=== PATIENT | male | born 1945 | race Caucasian/White ===

== ENCOUNTER 2018-07-01 12:55 | Emergency (ER) | payer OTHER ==
[2018-07-01 13:18] LABS: ADD MAN DIFF? NO
[2018-07-01 13:21] LABS: ABNORMAL IP MESSAGE 1; BASOPHILS % 0.2 % (0.0-2.0); EOSINOPHILS # 0.1 10^3/ul (0.0-0.5); EOSINOPHILS % 0.5 % (0.0-7.0); HEMOGLOBIN 12.6 g/dl (14.0-18.0); LYMPHOCYTES # 0.5 10^3/ul (0.8-2.9); LYMPHOCYTES % 4.4 % (15.0-51.0); MEAN CORPUSCULAR HEMOGLOBIN 30.5 pg (29.0-33.0); MEAN CORPUSCULAR HGB CONC 31.5 g/dl (32.0-37.0); MEAN CORPUSCULAR VOLUME 96.9 fl (82.0-101.0); MEAN PLATELET VOLUME 9.1 fl (7.4-10.4); MONOCYTE # 0.1 10^3/ul (0.3-0.9); NEUTROPHIL # 10.3 10^3/ul (1.6-7.5); NEUTROPHILS % 93.4 % (39.0-77.0); PLATELET COUNT 188 10^3/UL (140-415); POSITIVE DIFF @See below; RED BLOOD COUNT 4.13 10^6/ul (4.70-6.10); RED CELL DISTRIBUTION WIDTH 13.5 % (11.5-14.5)
[2018-07-01] MEDS: PIPER-TAZO 3.375 GM IV (PMX) 100 ML IVPB (13:26)
[2018-07-01] MEDS: FAMOTIDINE 20 MG INJ IV (13:27)
[2018-07-01] MEDS: ONDANSETRON 4 MG INJ IV (13:27)
[2018-07-01] MEDS: SODIUM CHLORIDE 0.9% 1L BAG IV* (13:27)
[2018-07-01] MEDS: ACETAMINOPHEN 325 MG TAB PO (13:29)
[2018-07-01 13:46] LABS: ALANINE AMINOTRANSFERASE 19 IU/L (13-69); ALBUMIN 4.4 g/dl (3.3-4.9); ALBUMIN/GLOBULIN RATIO 1.37; ALKALINE PHOSPHATASE 89 IU/L (42-121); AMYLASE 207 U/L (11-123); ANION GAP 12 (5-13); ASPARTATE AMINO TRANSFERASE 41 IU/L (15-46); BILIRUBIN,TOTAL 0.6 mg/dl (0.2-1.3); BLOOD UREA NITROGEN 22 mg/dl (7-20); CARBON DIOXIDE 21 mmol/L (21-31); CHLORIDE 111 mmol/L (97-110); CREATININE 1.56 mg/dl (0.61-1.24); GLUCOSE 102 mg/dl (70-220); LIPASE 186 U/L (23-300); SODIUM 144 mmol/L (135-144); TOTAL PROTEIN 7.6 g/dl (6.1-8.1)
[2018-07-01 13:56] LABS: B-TYPE NATRIURETIC PEPTIDE 80 PG/ML (0-125); TROPONIN-I < 0.012 ng/ml (0.000-0.120)
[2018-07-01] MEDS: VANCOMYCIN 1 GM (PMX) 250 ML IVPB (14:02)
[2018-07-01 14:09] LABS: POTASSIUM 4.8 mmol/L (3.5-5.1)
[2018-07-01 14:19] LABS: INR 0.96; PARTIAL THROMBOPLASTIN TIME 22.9 Sec (23.0-35.0); PROTIME 12.9 Sec (11.9-14.9)
[2018-07-01 16:14] LABS: ADD UMIC YES; UR ASCORBIC ACID NEGATIVE (NEGATIVE); UR BILIRUBIN (Dip) NEGATIVE (NEGATIVE); UR BLOOD (Dip) 1+ mg/dL (NEGATIVE); UR CLARITY CLEAR (CLEAR); UR COLOR YELLOW (YELLOW); UR GLUCOSE (Dip) NEGATIVE (NEGATIVE); UR KETONES (Dip) NEGATIVE (NEGATIVE); UR LEUKOCYTE ESTERASE (Dip) NEGATIVE Leu/ul (NEGATIVE); UR NITRITE (Dip) NEGATIVE (NEGATIVE); UR RBC 1 /HPF (0-5); UR SPECIFIC GRAVITY (Dip) 1.014 (1.003-1.030); UR TOTAL PROTEIN (Dip) NEGATIVE (NEGATIVE); UR UROBILINOGEN (Dip) NEGATIVE (NEGATIVE); UR WBC 6 /HPF (0-5)
[2018-07-01 17:45] LABS: LACTIC ACID 0.9 mmol/L (0.5-2.0)
== END 2018-07-01 19:30 | disposition short-term general hospital (02) ==
LOC: E/R 19:30
DX: A41.9 Sepsis, unspecified organism (principal); I10 Essential (primary) hypertension; R51 Headache; Z79.82 Long term (current) use of aspirin; Z86.73 Personal history of transient ischemic attack (TIA), and cerebral infarction without residual deficits
CPT/HCPCS: 36415; 70450; 71045; 80053; 81001; 82150; 83605; 83690; 83880; 84484; 85025; 85610; 85730; 87040-91; 87086; 93005; 96374; 96375; 99291-25